=== PATIENT | male | born 1990 | race Two or more races ===

== ENCOUNTER 2017-12-27 13:33 | Emergency (ER) | payer MEDICAID ==
--- NOTE | 2017-12-27 16:20 | EDPHY ---
H & P Time Seen by Provider: 12/27/17 15:17 HPI/ROS: CHIEF COMPLAINT: Laceration left hand HISTORY OF PRESENT ILLNESS: 27-year-old male presents to the emergency department with a laceration to his left hand. The patient cut his hand on a piece of fence. The incident happened just prior to arrival. He was able to control the bleeding with firm direct pressure. He believes his tetanus shot is current. He is right-hand dominant. ROS: Denies numbness or tingling in his fingers, retained foreign body or other injuries. Past Medical/Surgical History: Negative Social History: Single and lives in [place] Smoking Status: Never smoked Physical Exam: On examination the patient has a 2 cm laceration to the base of the palmar aspect of the left thumb overlying thenar eminence. No evidence of retained foreign body. Subcutaneous tissue noted with the wound. No palpable bony tenderness. Full range motion of the left thumb. The other fingers do not appear injured. No signs of infection. Constitutional: Initial Vital Signs Temperature (C) 36.7 C 12/27/17 13:37 Heart Rate 95 12/27/17 13:37 Respiratory Rate 18 12/27/17 13:37 Blood Pressure 147/85 H 12/27/17 13:37 O2 Sat (%) 98 12/27/17 13:37 O2 Delivery Mode Room Air Allergies/Adverse Reactions: No Known Allergies Allergy (Unverified 07/01/16 20:49) Home Medications: Medication Instructions Recorded Cyclobenzaprine [Flexeril 10 MG 10 mg PO TID PRN #15 tab 07/01/16 (*)] Hydrocodone/APAP 5/325 [[place] 1 tab PO Q4H PRN #7 tab 07/01/16 5/325] MDM/Departure - MDM Procedures: Laceration repair. Verbal consent was obtained from the patient. The 2 cm laceration on the left hand was anesthetized using 1% lidocaine with epinephrine. The wound was irrigated with saline, draped and explored to its base with a gloved finger. There were no deep structures involved. No tendon injury was identified. The wound was repaired with 4 0 Ethilon, 4 sutures. The wound repair was simple. The procedure was performed by myself. ED Course/Re-evaluation: 27-year-old male presents with left hand laceration. The wound was repaired, see procedure note. His tetanus shot is current. - Depart Disposition: Home, Routine, Self-Care Clinical Impression: Laceration of left hand Qualifiers: Encounter type: initial encounter Foreign body presence: without foreign body Qualified Code(s): S61.412A - Laceration without foreign body of left hand, initial encounter Condition: Good Instructions: Laceration (ED), Care For Your Stitches (ED), Acute Wounds (ED) Additional Instructions: Wound Care Follow-Up: Removal of sutures in 10 days. Suture removal is complimentary in uncomplicated cases. Infection or abnormal findings would require reevaluation by the MD. In that case, you may be billed. Return if you notice any signs or symptoms of infection such as redness, swelling, increased pain, fever, purulent drainage. Referrals: [facility],. [Primary Care Provider] - As per Instructions
[2017-12-27] MEDS ORDERED: BACITRACIN OINTMENT 1 PACKET TP ONE (16:43)
[2017-12-27 16:49] VITALS: BP 138/78; PULSE 69; RESP 20; TEMP 98.4; O2SAT 95
== END 2017-12-27 16:47 | disposition home or self-care (01) ==
PROC: 0HQGXZZ Repair Left Hand Skin, External Approach (ICD-10-PCS; principal; 2017-12-27)
DX: S61.412A Laceration without foreign body of left hand, initial encounter (principal); W45.8XXA Other foreign body or object entering through skin, initial encounter